=== PATIENT | female | born 1955 | race Native Hawaiian/Other Pacific Islander ===

== ENCOUNTER 2016-08-26 10:13 | Outpatient (CLI) | payer OTHER ==
[~2016-08-26] VITALS: Ht 167.6 cm; Wt 61.7 kg
[2016-08-26 11:30] VITALS: BP 133/70; TEMP 98.2
== END 2016-08-26 19:36 | disposition home or self-care (01) ==
LOC: INF 10:13
DX: M81.0 Age-related osteoporosis without current pathological fracture (principal)
CPT/HCPCS: 36415; 82310; 96372; J0897

== ENCOUNTER 2016-12-19 08:37 | Outpatient (CLI) | payer OTHER | END 2016-12-19 10:00 | disposition home or self-care (01) | LOC: MAMMO 08:37 | DX: Z12.31 Encounter for screening mammogram for malignant neoplasm of breast (principal) ==

== ENCOUNTER 2017-02-25 14:59 | Outpatient (CLI) | payer OTHER | END 2017-02-25 19:41 | disposition home or self-care (01) | LOC: LABW 14:59 | DX: M81.0 Age-related osteoporosis without current pathological fracture (principal) | CPT/HCPCS: 36415; 82310 ==

== ENCOUNTER 2017-11-19 13:23 | Outpatient (CLI) | payer OTHER ==
[~2017-11-19] VITALS: Ht 167.6 cm; Wt 60.3 kg
== END 2017-11-19 20:36 | disposition home or self-care (01) ==
LOC: INF 13:23
DX: M81.0 Age-related osteoporosis without current pathological fracture (principal)
CPT/HCPCS: 36415; 82310; 96372; J0897

== ENCOUNTER 2017-12-21 08:55 | Outpatient (CLI) | payer OTHER | END 2017-12-21 19:20 | disposition home or self-care (01) | LOC: MAMMO 08:55 | DX: Z12.31 Encounter for screening mammogram for malignant neoplasm of breast (principal) ==

== ENCOUNTER 2018-12-23 10:32 | Outpatient (CLI) | payer OTHER | END 2018-12-23 20:42 | disposition home or self-care (01) | LOC: MAMMO 10:32 | DX: Z12.31 Encounter for screening mammogram for malignant neoplasm of breast (principal) ==

== ENCOUNTER 2019-01-20 08:27 | Outpatient (CLI) | payer OTHER ==
[~2019-01-20] VITALS: Ht 170.2 cm; Wt 57.2 kg
[2019-01-20 09:45] VITALS: BP 141/68; TEMP 98
== END 2019-01-20 10:26 | disposition home or self-care (01) ==
LOC: INF 08:27
DX: M81.0 Age-related osteoporosis without current pathological fracture (principal)
CPT/HCPCS: 36415; 82310; 96372; J0897

== ENCOUNTER 2019-10-05 10:47 | Outpatient (CLI) | payer OTHER | END 2019-10-05 21:29 | disposition home or self-care (01) | LOC: RAD 10:47 | DX: U07.1 COVID-19 (principal) ==

== ENCOUNTER 2019-12-26 15:14 | Outpatient (CLI) | payer OTHER | END 2019-12-26 19:12 | disposition home or self-care (01) | LOC: MAMMO 15:14 | DX: Z12.31 Encounter for screening mammogram for malignant neoplasm of breast (principal) ==

== ENCOUNTER 2021-03-03 09:56 | Outpatient (CLI) | payer OTHER | END 2021-03-03 22:06 | disposition home or self-care (01) | LOC: RAD 09:56 | PROVIDERS: ATTEND Internal Medicine | DX: M25.512 Pain in left shoulder (principal); R07.81 Pleurodynia; W19.XXXA Unspecified fall, initial encounter ==

== ENCOUNTER 2022-01-29 08:10 | Outpatient (CLI) | payer OTHER | END 2022-01-29 19:01 | disposition home or self-care (01) | LOC: MAMMO 08:10 | PROVIDERS: ATTEND Specialist | DX: Z12.31 Encounter for screening mammogram for malignant neoplasm of breast (principal) ==

== ENCOUNTER 2022-06-23 10:24 | Outpatient (CLI) | payer OTHER | END 2022-06-23 19:00 | disposition home or self-care (01) | LOC: RAD 10:24 | PROVIDERS: ATTEND Physician Assistant | DX: S52.522A Torus fracture of lower end of left radius, initial encounter for closed fracture (principal); Y92.89 Other specified places as the place of occurrence of the external cause ==

== ENCOUNTER 2022-06-30 10:56 | Outpatient (CLI) | payer OTHER | END 2022-06-30 20:41 | disposition home or self-care (01) | LOC: RAD 10:56 | PROVIDERS: ATTEND Physician Assistant | DX: M25.532 Pain in left wrist (principal) ==

== ENCOUNTER 2022-07-21 14:43 | Outpatient (CLI) | payer OTHER | END 2022-07-21 19:27 | disposition home or self-care (01) | LOC: RAD 14:43 | PROVIDERS: ATTEND Internal Medicine | DX: M80.032A Age-related osteoporosis with current pathological fracture, left forearm, initial encounter for fracture (principal); N95.8 Other specified menopausal and perimenopausal disorders ==